=== PATIENT | male | born 1970 | race Caucasian/White ===

== ENCOUNTER 2018-02-02 15:21 | Inpatient (IN) | payer OTHER ==
[2018-02-02 18:56] VITALS: BMI 29.0
--- NOTE | 2018-02-02 21:12 | HP ---
Admission [facility] Chief Complaint: " I am here for rehab" Allergies/Adverse Reactions: Allergies Allergy/AdvReac Type Severity Reaction Status Date / Time No Known Allergies Allergy Verified 02/02/18 21:28 History of Present Illness: 47 yo male with hx of alcohol and nicotine dependence presents today for rehab. Completed eetox today at [facility]. PMHX: chronic knee pain, anxiety, denies any other psychiatric hx. Attends MMTP at [facility] on 4th floor, on 130 mg, last medicated today. Denies suicidal / homicidal ideation or suicide attempts. Exam Limitations: No Limitations - Ebola screening Have you traveled outside of the country in the last 21 days: No Have you had contact with anyone from an Ebola affected area: No Have you been sick,other than usual withdrawal symptoms: No Do you have a fever: No - Review of Systems Constitutional: Changes in sleep EENT: reports: No Symptoms Reported Respiratory: reports: No Symptoms reported Cardiac: reports: No Symptoms Reported GI: reports: No Symptoms Reported : reports: No Symptoms Reported Musculoskeletal: reports: Other (rigth knee pain) Neuro: reports: No Symptoms reported Endocrine: reports: No Symptoms Reported Hematology: reports: No Symptoms Reported Psychiatric: reports: Orientated x3, Anxious Other Systems: Reviewed and Negative Patient History - Patient Medical History Hx Anemia: No Hx Asthma: No Hx Chronic Obstructive Pulmonary Disease (COPD): No Hx Cancer: No Hx Cardiac Disorders: No Hx Congestive Heart Failure: No Hx Hypertension: No Hx Hypercholesterolemia: No Hx Pacemaker: No HX Cerebrovascular Accident: No Hx Seizures: No Hx Dementia: No Hx Diabetes: No Hx Gastrointestinal Disorders: No Hx Liver Disease: No Hx Genitourinary Disorders: No Hx Sexually Transmitted Disorders: No Hx Renal Disease (ESRD): No Hx Thyroid Disease: No Hx Human Immunodeficiency Virus (HIV): No (last tested 6 months ago ) Hx Hepatitis C: No Hx Depression: Yes Hx Suicide Attempt: No Hx Bipolar Disorder: No Hx Schizophrenia: No - Patient Surgical History Past Surgical History: Yes Hx Neurologic Surgery: No Hx Cataract Extraction: No Hx Cardiac Surgery: No Hx Lung Surgery: No Hx Breast Surgery: No Hx Breast Biopsy: No Hx Abdominal Surgery: No Hx Appendectomy: Yes (10 yo ) Hx Cholecystectomy: No Hx Genitourinary Surgery: No Hx Section: No Hx Orthopedic Surgery: No Hx Hysterectomy: No Anesthesia Reaction: No - PPD History Previous Implant?: Yes Documented Results: Negative w/proof Date: 01/27/18 Results: NEG PPD PPD to be Administered?: No - Smoking Cessation Smoking history: Current every day smoker Have you smoked in the past 12 months: Yes Aproximately how many cigarettes per day: 1 Hx Chewing Tobacco Use: No Initiated information on smoking cessation: Yes 'Breaking Loose' booklet given: 02/02/18 - Substance & Tx. History Hx Alcohol Use: Yes Substance Use Type: Alcohol Hx Substance Use Treatment: Yes ([facility] completed detox 02/02/18) - Substances Abused Alcohol Route: Oral Frequency: Daily Amount used: $300 - $400 week Age of first use: 43 Date of Last Use: 01/26/18 Family Disease History - Family Disease History Family Disease History: Diabetes: Mother (alive, alzheimers), Heart Disease: Father (, stroke ), Other: Father, Mother Admission Physical Exam BHS - Vital Signs Vital Signs: Vital Signs - 24 hr 02/02/18 18:39 Temperature 97.1 F L Pulse Rate 90 Respiratory 20 Rate Blood Pressure 145/93 - Physical General Appearance: Yes: Nourished, Appropriately Dressed, Anxious HEENTM: Yes: EOMI, Hearing grossly Normal, Normal ENT Inspection, Normocephalic , Normal Voice, MONI, Pharynx Normal, Tm's normal Respiratory: Yes: Chest Non-Tender, Lungs Clear, Normal Breath Sounds, No Respiratory Distress, No Accessory Muscle Use Breast: Yes: Breast Exam Deferred Cardiology: Yes: Regular Rhythm, Regular Rate Abdominal: Yes: Normal Bowel Sounds, Non Tender, Flat, Soft Genitourinary: Yes: Within Normal Limits Back: Yes: Normal Inspection Musculoskeletal: Yes: full range of Motion, Gait Steady, Pelvis Stable Extremities: Yes: Normal Capillary Refill, Normal Inspection, Normal Range of Motion, Non-Tender Neurological: Yes: director of special services II-XII NML intact, Fully Oriented, Alert, Motor Strength 5/5 Integumentary: Yes: Within Normal Limits Lymphatic: Yes: Within Normal Limits - Diagnostic (1) Alcohol dependence Current Visit: Yes Status: Acute Qualifiers: Substance use status: uncomplicated Qualified Code(s): F10.20 - Alcohol dependence, uncomplicated (2) Opioid dependence on agonist therapy Current Visit: Yes Status: Acute Comment: MMTP at [facility] on 4th floor, on 130 mg, last medicated today, dose pending verification (3) Anxious mood Current Visit: Yes Status: Acute (4) Chronic pain of right knee Current Visit: Yes Status: Acute BHS Breath Alcohol Content Breath Alcohol Content: 0 Urine Drug Screen - Results Drug Screen Negative: No Urine Drug Screen Results: BZO-Benzodiazepines, MTD-Methadone Inpatient Rehab Admission - Initial Determination Are CD services needed?: Yes Free of communicable disease: Yes Not in need of hospitalization: Yes - Rehab Admission Criteria Previous failed treatment: Yes Poor recovery environment: Yes Comorbidities: Yes Lacks judgement: Yes Patient is meeting Inpatient Rehab admission criteria:: Yes
[2018-02-02] MEDS ORDERED: LOPERAMIDE HCL 2 MG CAPSULE PO PRN (21:28)
[2018-02-02] MEDS ORDERED: P-EPHED 60MG/TRIPROLIDI 2.5MG TABLET PO PRN (21:28)
[2018-02-02] MEDS ORDERED: MENTHOL/PHENOL 1 EACH UD MM PRN (21:28)
[2018-02-02] MEDS ORDERED: NICOTINE POLACRILEX 2 MG GUM BUC PRN (21:28)
[2018-02-02] MEDS ORDERED: MAG HYDROX/AL HYDROX/SIMETH 30 ML UNIT-DOSE CUP PO PRN (21:28)
[2018-02-02] MEDS ORDERED: guaiFENesin/D-METHORPHAN HB 10 ML UNIT-DOSE CUPS PO PRN (21:28)
[2018-02-02] MEDS ORDERED: MAGNESIUM CITRATE 300 ML BOTTLE PO PRN (21:28)
[2018-02-02] MEDS ORDERED: hydrOXYzine PAMOATE 50 MG CAPSULE (FP) PO PRN (21:28)
[2018-02-02] MEDS ORDERED: MAGNESIUM HYDROX 2400MG/30ML ORAL SUSPENSION 30 ML CUP PO PRN (21:28)
[2018-02-02] MEDS ORDERED: diphenhydrAMINE HCL 25 MG CAPSULE (FP) PO PRN (21:37)
[2018-02-02] MEDS ORDERED: MELATONIN 5 MG TABLETS PO PRN (22:00)
[2018-02-03] MEDS: IBUPROFEN 400 MG TABLET (FP) PO PRN ×2 (03:47→14:58)
[2018-02-03] MEDS: THIAMINE HCL 100 MG TABLET (FP) PO SCH ×2 (05:32→21:48)
[2018-02-03 06:53] LABS: URINE APPEARANCE CLEAR; URINE BILIRUBIN NEGATIVE (<2.0 mg/dL); URINE BLOOD NEGATIVE (NEGATIVE); URINE COLOR LTYELLOW; URINE GLUCOSE (UA) NEGATIVE (NEGATIVE); URINE KETONE NEGATIVE (NEGATIVE); URINE LEUK ESTERASE TRACE (NEGATIVE); URINE NITRITE NEGATIVE (NEGATIVE); URINE PROTEIN NEGATIVE (NEGATIVE); URINE UROBILINOGEN NEGATIVE mg/dL (0.2-1.0)
[2018-02-03] MEDS ORDERED: METHADONE HCL 10 MG TABLET PO SCH (10:15)
[2018-02-03] MEDS ORDERED: METHADONE HCL 10 MG TABLET ONE (10:16)
[2018-02-03] MEDS ORDERED: METHADONE HCL 40 MG DISPERSABLE TABLET ONE (10:16)
[2018-02-03] MEDS: METHADONE 120 MG, METHADONE 10 MG PO SCH (10:22)
[2018-02-03] MEDS: PRENATAL VITAMINS W/ FOLIC ACID TABLET (FP) PO SCH (10:24)
[2018-02-03 10:52] LABS: HEMATOCRIT 42.7 % (35.4-49); HEMOGLOBIN 14.5 GM/dL (11.7-16.9); MCH 32.1 pg (25.7-33.7); MCHC 34.1 g/dl (32.0-35.9); MEAN CELL VOLUME 94.3 fl (80-96); MEAN PLT VOLUME 8.4 fl (7.5-11.1); PLATELET COUNT 300 K/MM3 (134-434); RBC 4.53 M/mm3 (4.00-5.60); RDW 14.4 % (11.9-15.9); WHITE BLOOD COUNT 7.1 K/mm3 (4.0-10.0)
[2018-02-03 10:55] LABS: CHLORIDE 99 mmol/L (98-107); POTASSIUM 4.3 mmol/L (3.5-5.1); SODIUM 138 mmol/L (136-145)
[2018-02-03 11:36] LABS: ALBUMIN 4.1 g/dl (3.4-5.0); ALK PHOS 76 U/L (45-117); ANION GAP 11 (8-16); BILIRUBIN,TOTAL 0.4 mg/dL (0.2-1.0); BLOOD UREA NITROGEN 16 mg/dL (7-18); CALCIUM 8.8 mg/dL (8.5-10.1); CO2 28 mmol/L (21-32); CREATININE 0.8 mg/dL (0.7-1.3); GLUCOSE,RANDOM 92 mg/dL (74-106); SGOT/AST 30 U/L (15-37); TOT PROT 7.7 g/dl (6.4-8.2)
[2018-02-03 12:06] LABS: SGPT/ALT 60 U/L (12-78)
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
[2018-02-04] MEDS: IBUPROFEN 400 MG TABLET (FP) PO PRN ×3 (03:37→21:10)
[2018-02-04] MEDS ORDERED: METHADONE HCL 10 MG TABLET ONE (04:53)
[2018-02-04] MEDS ORDERED: METHADONE HCL 40 MG DISPERSABLE TABLET ONE (04:54)
[2018-02-04] MEDS: METHADONE 120 MG, METHADONE 10 MG PO SCH (05:57)
[2018-02-04] MEDS: PRENATAL VITAMINS W/ FOLIC ACID TABLET (FP) PO SCH (09:37)
[2018-02-04] MEDS: THIAMINE HCL 100 MG TABLET (FP) PO SCH (21:10)
[2018-02-05] MEDS ORDERED: METHADONE HCL 10 MG TABLET ONE (05:28)
[2018-02-05] MEDS ORDERED: METHADONE HCL 40 MG DISPERSABLE TABLET ONE (05:28)
[2018-02-05] MEDS: METHADONE 120 MG, METHADONE 10 MG PO SCH (07:14)
[2018-02-05] MEDS: IBUPROFEN 400 MG TABLET (FP) PO PRN ×2 (07:17→21:03)
[2018-02-05] MEDS: PRENATAL VITAMINS W/ FOLIC ACID TABLET (FP) PO SCH (10:11)
[2018-02-05] MEDS: THIAMINE HCL 100 MG TABLET (FP) PO SCH (21:04)
[2018-02-06] MEDS ORDERED: METHADONE HCL 10 MG TABLET ONE (03:18)
[2018-02-06] MEDS ORDERED: METHADONE HCL 40 MG DISPERSABLE TABLET ONE (03:18)
[2018-02-06] MEDS: METHADONE 120 MG, METHADONE 10 MG PO SCH (06:07)
[2018-02-06] MEDS: IBUPROFEN 400 MG TABLET (FP) PO PRN ×2 (09:36→21:07)
[2018-02-06] MEDS: PRENATAL VITAMINS W/ FOLIC ACID TABLET (FP) PO SCH (09:37)
[2018-02-06] MEDS: THIAMINE HCL 100 MG TABLET (FP) PO SCH (21:08)
[2018-02-07] MEDS ORDERED: METHADONE HCL 10 MG TABLET ONE (03:45)
[2018-02-07] MEDS ORDERED: METHADONE HCL 40 MG DISPERSABLE TABLET ONE (03:46)
[2018-02-07] MEDS: METHADONE 120 MG, METHADONE 10 MG PO SCH (06:51)
[2018-02-07] MEDS: IBUPROFEN 400 MG TABLET (FP) PO PRN (09:34)
[2018-02-07] MEDS: PRENATAL VITAMINS W/ FOLIC ACID TABLET (FP) PO SCH (09:34)
[2018-02-07] MEDS: THIAMINE HCL 100 MG TABLET (FP) PO SCH (22:03)
[2018-02-08] MEDS ORDERED: METHADONE HCL 10 MG TABLET ONE (04:21)
[2018-02-08] MEDS ORDERED: METHADONE HCL 40 MG DISPERSABLE TABLET ONE (04:21)
[2018-02-08] MEDS: IBUPROFEN 400 MG TABLET (FP) PO PRN ×2 (05:09→19:41)
[2018-02-08] MEDS: METHADONE 120 MG, METHADONE 10 MG PO SCH (06:04)
[2018-02-08] MEDS: ACETAMINOPHEN 325 MG TABLET (FP) PO PRN ×2 (09:48→21:08)
[2018-02-08] MEDS: PRENATAL VITAMINS W/ FOLIC ACID TABLET (FP) PO SCH (09:48)
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
[2018-02-08] MEDS: THIAMINE HCL 100 MG TABLET (FP) PO SCH (21:07)
[2018-02-09] MEDS ORDERED: METHADONE HCL 10 MG TABLET ONE (05:03)
[2018-02-09] MEDS ORDERED: METHADONE HCL 40 MG DISPERSABLE TABLET ONE (05:03)
[2018-02-09] MEDS: METHADONE 120 MG, METHADONE 10 MG PO SCH (06:07)
[2018-02-09 06:59] VITALS: BP 112/71; PULSE 69; TEMP 98.3
[2018-02-09] MEDS: IBUPROFEN 400 MG TABLET (FP) PO PRN (07:39)
== END 2018-02-09 08:45 | disposition home or self-care (01) | DRG 772 ==
LOC: YASAS 15:21 → Y5N 22:44
PROVIDERS: ADMIT Psychiatry & Neurology Psychiatry; ATTEND Psychiatry & Neurology Psychiatry
PROC: HZ42ZZZ Group Counseling for Substance Abuse Treatment, Cognitive-Behavioral (ICD-10-PCS; principal; 2018-02-02)
DX: F10.20 Alcohol dependence, uncomplicated (principal); F11.20 Opioid dependence, uncomplicated; F17.210 Nicotine dependence, cigarettes, uncomplicated; F43.10 Post-traumatic stress disorder, unspecified; F41.9 Anxiety disorder, unspecified; M25.561 Pain in right knee; G89.29 Other chronic pain
CPT/HCPCS: 36415; 80053; 81003; 81015; 85027; 86593; 87389